=== PATIENT | male | born 1975 | race Caucasian/White ===

== ENCOUNTER 2018-10-10 15:49 | Emergency (ER) | payer OTHER ==
[2018-10-10] MEDS: ACETAMINOPHEN 500 MG TAB PO (22:13)
[2018-10-10] MEDS: KETOROLAC 60 MG INJ IM (22:13)
[2018-10-10] MEDS: DEXAMETHASONE 10 MG/ML 1 ML INJ IM (22:14)
== END 2018-10-11 01:08 | disposition home or self-care (01) ==
LOC: FTE 10-11 01:08
DX: J02.8 Acute pharyngitis due to other specified organisms (principal); B96.89 Other specified bacterial agents as the cause of diseases classified elsewhere
CPT/HCPCS: 87880; 96372; 99284-25